=== PATIENT | male | born 2000 | race Two or more races ===

== ENCOUNTER 2023-05-27 11:39 | Emergency (ER) | payer MEDICAID ==
[~2023-05-27] VITALS: Ht 172.7 cm; Wt 65.9 kg
[2023-05-27 11:51] VITALS: TEMP 98.5
[2023-05-27 13:09] VITALS: BP 125/79; PULSE 84; RESP 16
[2023-05-27] MEDS ORDERED: IBUP-1554 PO (13:31)
== END 2023-05-27 13:51 | disposition home or self-care (01) ==
LOC: EMS 11:40
DX: S83.91XA Sprain of unspecified site of right knee, initial encounter (principal); M25.461 Effusion, right knee; X58.XXXA Exposure to other specified factors, initial encounter; Y93.66 Activity, soccer; Y92.89 Other specified places as the place of occurrence of the external cause; Y99.8 Other external cause status
CPT/HCPCS: 10160; 20610; 99283

== ENCOUNTER 2023-06-16 14:05 | Emergency (ER) | payer MEDICAID ==
[~2023-06-16] VITALS: Ht 167.6 cm; Wt 54.5 kg
[~2023-06-16 14:05] MED LIST: IBUP-1554 PO
[2023-06-16 14:51] VITALS: TEMP 98.2
[2023-06-16 15:17] LABS: COVID AG,FIA SOURCE NASAL SWAB
[2023-06-16 15:42] LABS: INFLUENZA TYPE A NEGATIVE FOR TYPE A (NEGATIVE); INFLUENZA TYPE B NEGATIVE FOR TYPE B (NEGATIVE); SARS-COV2 (COVID) ANTIGEN,FIA Negative (Negative)
[2023-06-16 17:00] VITALS: BP 145/71; PULSE 79; RESP 17
[2023-06-16] MEDS ORDERED: IBUPROFEN 600 MG TABLET PO ONE (17:00)
== END 2023-06-16 17:16 | disposition home or self-care (01) ==
LOC: EMS 14:05
DX: R07.89 Other chest pain (principal); F17.210 Nicotine dependence, cigarettes, uncomplicated; Z20.822 Contact with and (suspected) exposure to COVID-19
CPT/HCPCS: 71046; 87804; 93005; 99285; 99406